=== PATIENT | female | born 1955 | race Caucasian/White ===

== ENCOUNTER 2019-08-14 15:43 | Emergency (ER) | payer OTHER, BC ==
[~2019-08-14] VITALS: Ht 170.2 cm; Wt 106.6 kg
[~2019-08-14 15:43] MED LIST: ADULT LOW DOSE81 MG PO; MOBIC7.5 MG PO; RHINOCORT AQUA8.6 GM NS; SINGULAIR 10 MG10 M1 PO; VAGIFEM10 MCG; VAGIFEM25 MCG VG; ZOCOR 20 MG TAB20 M1 PO; ZYRTEC10 M2 PO
[2019-08-14 16:11] LABS: URINE BILIRUBIN NEGATIVE (Negative); URINE BLOOD 2+ (Negative); URINE CLARITY CLEAR; URINE COLOR YELLOW; URINE GLUCOSE-RANDOM* NEGATIVE (Negative); URINE KETONES NEGATIVE (Negative); URINE NITRITE-REFLEX NEGATIVE (Negative); URINE PROTEIN (DIPSTICK) NEGATIVE (Negative); URINE UROBILINOGEN 0.2 E.U./dl (0.2-1.0)
[2019-08-14 16:12] LABS: URINE LEUKOCYTES-REFLEX 2+ (Negative)
[2019-08-14 16:24] LABS: CASTS None Seen /LPF (None Seen); SQUAMOUS >10 Many /LPF (0-3)
[2019-08-14 16:25] LABS: CRYSTALS None Seen /LPF (None Seen); URINE RBC 0-2 Rare /HPF (0-2); URINE WBC-REFLEX 6-15 Few /HPF (0-5)
[2019-08-14] MEDS ORDERED: MELATONIN5 MG PO (16:32)
[2019-08-14] MEDS ORDERED: VITAMIN D32000 UNIT PO (16:33)
[2019-08-14] MEDS ORDERED: ZESTRIL5 MG PO (16:34)
[2019-08-14] MEDS ORDERED: LIPITOR40 MG PO (16:34)
[2019-08-14] MEDS ORDERED: BRIMONIDINE TART5 ML EA. EYE (16:36)
[2019-08-14 16:39] LABS: ABSOLUTE NEUTROPHILS 3.1 thou/uL (1.4-8.2); BASOPHILS 0.7 % (0.0-2.0); EOSINOPHILS 1.9 % (0.0-3.0); HEMOGLOBIN 14.9 gm/dL (12.0-15.0); LYMPHOCYTES 38.8 % (24.0-44.0); MCH 31.4 pg (26.0-34.0); MCHC 35.4 g/dL (28.0-37.0); MCV 88.5 fL (80.0-100.0); MONOCYTES 7.7 % (1.0-8.0); PLATELET COUNT 233 thou/uL (150-400); POLYS 50.9 % (36.0-66.0); RBC 4.75 mil/uL (4.20-5.00); RDW 13.4 % (10.5-14.5); WBC 6.1 thou/uL (4.0-11.0)
[2019-08-14 16:54] LABS: CALCIUM 9.2 mg/dL (8.5-10.1); CREATININE 0.9 mg/dL (0.6-1.0); POTASSIUM 3.9 mmol/L (3.5-5.1)
[2019-08-14 16:57] LABS: ALBUMIN 3.6 g/dL (3.4-5.0); TOTAL BILIRUBIN 0.3 mg/dL (<0.1-1.0); TOTAL PROTEIN 7.5 g/dL (6.4-8.2)
[2019-08-14] MEDS ORDERED: MACROBID 100 M100 M1 PO (17:56)
[2019-08-14 18:15] VITALS: BP 128/56
== END 2019-08-14 18:15 | disposition home or self-care (01) ==
LOC: ER 15:43
PROVIDERS: Emergency Medicine
DX: N39.0 Urinary tract infection, site not specified (principal); E11.9 Type 2 diabetes mellitus without complications; I10 Essential (primary) hypertension; E78.00 Pure hypercholesterolemia, unspecified; Z85.038 Personal history of other malignant neoplasm of large intestine; Z98.890 Other specified postprocedural states; Z88.1 Allergy status to other antibiotic agents